=== PATIENT | male | born 1955 | race Caucasian/White ===

== ENCOUNTER → 2019-04-03 16:23 | Outpatient (CLI) | payer OTHER, SELFPAY ==
--- NOTE | 2019-04-03 16:27 | DI.US.S_ITS ---
PROCEDURE: US PERIPH VENOUS LOW EXTREM LT INDICATIONS: LE SWELLING, PAIN R/O DVT TECHNIQUE: Real-time imaging, as well as color and pulse Doppler interrogation, were performed of the lower extremity deep veins from the inguinal ligament to the popliteal fossa. COMPARISON: None. FINDINGS: The common femoral, femoral and popliteal veins are normally compressible, and free of intraluminal thrombus. Color and pulse Doppler demonstrate normal phasic intraluminal flow. There is normal augmentation response to distal compression maneuver. Borderline, bilateral enlarged groin lymph nodes are noted the largest is present on the left measuring 12 mm. IMPRESSION: 1. No deep venous thrombosis. 2. Borderline enlarged groin lymph nodes as above. While these could be reactive in nature, clinical correlation is recommended. Dictated by: Nanette Toscano M.D. on 04/03/2019 at 17:06 Approved by: Nanette Toscano M.D. on 04/03/2019 at 17:07
== END ==
PROVIDERS: Visit Provider Physician Assistant
DX: M79.89 Other specified soft tissue disorders (principal)
CPT/HCPCS: 93971

== ENCOUNTER → 2020-04-04 09:25 | Outpatient (CLI) | payer OTHER, SELFPAY ==
[2020-04-04 10:26] LABS: Add Manual Diff / Slide Review NO; Basophils Absolute Auto 0 /uL (0-100); Basophils Percent Auto 0.4 % (0-2); Eosinophils Absolute Auto 100 /uL (0-450); Eosinophils Percent Auto 2.6 % (2-4); Hematocrit 41.9 % (41-53); Hemoglobin 14.4 g/dL (13.5-17.5); Lymphocytes Absolute Auto 1700 /uL (1100-4500); Lymphocytes Percent Auto 31.8 % (25-40); Mean Corpuscular HGB Conc 34.4 % (30-36); Mean Corpuscular Hemoglobin 32.5 PG (26-34); Mean Corpuscular Volume 94.3 fL (80-100); Monocytes Absolute Auto 500 /uL (0-900); Monocytes Percent Auto 9.5 % (3-14); Neutrophils Absolute Auto 3000 /uL (1500-7000); Neutrophils Percent Auto 55.7 % (50-75); Platelet Count 232 X10^3/uL (150-400); Red Blood Cell Count 4.44 X10^6/uL (4.5-5.9); Red Cell Distribution Width 12.9 % (11.6-14.8); White Blood Cell Count 5.4 X10^3/uL (4.5-11.0)
[2020-04-04 10:43] LABS: Creatinine Urine Random 116.4 mg/dL
[2020-04-04 10:45] LABS: Microalbumin Urine Random 0.7 mg/dL (0-1.6)
[2020-04-04 10:47] LABS: Alanine Aminotransferase 34 IU/L (<50); Albumin 4.6 g/dL (3.5-5.0); Albumin Globulin Ratio 1.4 (1.0-2.8); Alkaline Phosphatase 67 U/L (38-126); Aspartate Aminotransferase 40 IU/L (17-59); BUN Creatinine Ratio 22.8 (6-22); Blood Urea Nitrogen 18 mg/dL (9-20); Calcium 9.8 mg/dL (8.4-10.2); Carbon Dioxide 27 mmol/L (22-32); Chloride 101 mmol/L (98-107); Cholesterol 157 mg/dL (140-199); Estimated Glomerular Filt Rate > 60.0 mL/min (>60); Globulin 3.4 g/dL (1.7-4.1); Glucose 97 mg/dL (80-110); HDL Cholesterol 40 mg/dL (40-60); HEMOLYSIS < 15 (0-50); LDL Cholesterol Calculated 80 mg/dL (<100); Sodium 136 mmol/L (137-145); Triglycerides 185 mg/dL (35-150)
[2020-04-04 11:07] LABS: Free T3, Triiodothyronine Free 4.06 pg/mL (2.77-5.27); Free T4, Direct Thyroxine 1.14 ng/dL (0.78-2.19)
[2020-04-04 11:10] LABS: Prostate Specific Antigen Scrn 0.629 ng/mL (0.1-4.0)
[2020-04-04 11:20] LABS: Thyroid Stimulating Hormone 3.44 uIU/mL (0.47-4.68)
== END ==
PROVIDERS: PCP Nurse Practitioner; Referring Provider Nurse Practitioner; Visit Provider Nurse Practitioner
DX: Z00.00 Encounter for general adult medical examination without abnormal findings (principal); E78.00 Pure hypercholesterolemia, unspecified; I10 Essential (primary) hypertension; M10.9 Gout, unspecified; Z12.11 Encounter for screening for malignant neoplasm of colon; Z12.5 Encounter for screening for malignant neoplasm of prostate; Z13.29 Encounter for screening for other suspected endocrine disorder
CPT/HCPCS: 36415; 80053; 80061; 82043; 82570; 84439; 84443; 84481; 85025; G0103

== ENCOUNTER → 2021-06-17 09:17 | Outpatient (CLI) | payer BC, SELFPAY ==
[2021-06-17 10:16] LABS: Alanine Aminotransferase 30 IU/L (<50); Albumin 4.4 g/dL (3.5-5.0); Albumin Globulin Ratio 1.6 (1.0-2.8); Alkaline Phosphatase 54 U/L (38-126); Aspartate Aminotransferase 38 IU/L (17-59); BUN Creatinine Ratio 29.3 (6-22); Bilirubin Total 0.6 mg/dL (0.2-1.3); Blood Urea Nitrogen 22 mg/dL (9-20); Calcium 9.9 mg/dL (8.4-10.2); Carbon Dioxide 32 mmol/L (22-32); Chloride 100 mmol/L (98-107); Cholesterol 158 mg/dL (140-199); Estimated Glomerular Filt Rate > 60.0 mL/min (>60); Globulin 2.8 g/dL (1.7-4.1); Glucose 98 mg/dL (80-110); HDL Cholesterol 55 mg/dL (40-60); HEMOLYSIS < 15 (0-50); LDL Cholesterol Calculated 83 mg/dL (<100); Potassium 4.5 mmol/L (3.4-5.1); Sodium 138 mmol/L (137-145); Total Protein 7.2 g/dL (6.3-8.2); Triglycerides 98 mg/dL (35-150)
[2021-06-17 10:26] LABS: Free T3, Triiodothyronine Free 3.96 pg/mL (2.77-5.27); Free T4, Direct Thyroxine 1.04 ng/dL (0.78-2.19)
[2021-06-17 10:39] LABS: Thyroid Stimulating Hormone 2.72 uIU/mL (0.47-4.68)
[2021-06-17 17:57] LABS: Creatinine Urine Random 97.6 mg/dL
[2021-06-17 18:02] LABS: Microalbumi Creatinin Ratio Ur 6.1 ug/mg CR (<30); Microalbumin Urine Random 0.6 mg/dL (0-1.6)
== END ==
PROVIDERS: PCP Nurse Practitioner; Referring Provider Nurse Practitioner; Visit Provider Nurse Practitioner
DX: E78.00 Pure hypercholesterolemia, unspecified (principal); I10 Essential (primary) hypertension; Z79.899 Other long term (current) drug therapy
CPT/HCPCS: 36415; 80053; 80061; 82043; 82570; 84439; 84443; 84481

== ENCOUNTER → 2022-04-08 09:41 | Outpatient (CLI) | payer OTHER, MEDICAID, SELFPAY ==
[2022-04-08 11:04] LABS: Creatinine Urine Random 23.2 mg/dL
[2022-04-08 11:07] LABS: Microalbumin Urine Random < 0.6 mg/dL (0-1.6)
[2022-04-08 11:07] LABS: Alanine Aminotransferase 30 IU/L (<50); Albumin 4.9 g/dL (3.5-5.0); Albumin Globulin Ratio 1.4 (1.0-2.8); Alkaline Phosphatase 63 U/L (38-126); Aspartate Aminotransferase 42 IU/L (17-59); BUN Creatinine Ratio 19.2 (6-22); Bilirubin Total 1.1 mg/dL (0.2-1.3); Blood Urea Nitrogen 14 mg/dL (9-20); Calcium 9.6 mg/dL (8.4-10.2); Carbon Dioxide 28 mmol/L (22-32); Chloride 102 mmol/L (98-107); Cholesterol 164 mg/dL (140-199); Estimated Glomerular Filt Rate > 60 mL/min (>60); Globulin 3.5 g/dL (1.7-4.1); Glucose 106 mg/dL (80-110); HDL Cholesterol 58 mg/dL (40-60); HEMOLYSIS < 15 (0-50); LDL Cholesterol Calculated 82 mg/dL (<100); Sodium 139 mmol/L (137-145); Total Protein 8.4 g/dL (6.3-8.2); Triglycerides 122 mg/dL (35-150)
[2022-04-08 11:19] LABS: Free T3, Triiodothyronine Free 3.48 pg/mL (2.77-5.27)
[2022-04-08 11:33] LABS: Thyroid Stimulating Hormone 2.62 uIU/mL (0.47-4.68)
== END ==
PROVIDERS: PCP Nurse Practitioner; Referring Provider Nurse Practitioner; Visit Provider Nurse Practitioner
DX: E78.00 Pure hypercholesterolemia, unspecified (principal); I10 Essential (primary) hypertension; K21.9 Gastro-esophageal reflux disease without esophagitis; M10.9 Gout, unspecified; Z79.899 Other long term (current) drug therapy
CPT/HCPCS: 36415; 80053; 80061; 82043; 82570; 84439; 84443; 84481

== ENCOUNTER → 2022-04-22 12:39 | Outpatient (CLI) | payer OTHER, MEDICAID, SELFPAY ==
[2022-04-24 12:36] LABS: Alpha-1-Globulin 0.2 g/dL (0.0-0.4); Alpha-2-Globulin 0.7 g/dL (0.4-1.0); Gamma Globulin 1.2 g/dL (0.4-1.8); Globulin Total 3.3 g/dL (2.2-3.9); Protein, Total 7.3 g/dL (6.0-8.5)
== END ==
PROVIDERS: PCP Nurse Practitioner; Referring Provider Nurse Practitioner; Visit Provider Nurse Practitioner
DX: R77.8 Other specified abnormalities of plasma proteins (principal); R77.9 Abnormality of plasma protein, unspecified
CPT/HCPCS: 36415; 84155; 84165

== ENCOUNTER → 2022-07-17 08:38 | Outpatient (CLI) | payer OTHER, MEDICAID, SELFPAY ==
--- NOTE | 2022-07-17 08:39 | DI.MRI.S_ITS ---
PROCEDURE: MR ANKLE RT WO/W CON INDICATIONS: Other specified soft tissue disorders TECHNIQUE: Noncontrast sagittal T1 spin echo and T2 fast spin echo with fat saturation, axial proton density fast spin echo and T2 fast spin echo with fat saturation, axial T1 spin echo with fat saturation, coronal T1 spin echo and T2 fast spin echo with fat saturation through the ankle/hindfoot. Post-contrast axial, coronal, and sagittal T1 spin echo with fat saturation through the ankle/hindfoot. COMPARISON: None. FINDINGS: Image quality: Excellent. Bones and joints: No bone marrow contusions or fractures. No hindfoot coalitions. No osteochondral injuries of the talar dome. There is degenerative spurring of the dorsal aspect of talonavicular joint. No enhancing soft tissue mass. No abnormal intraosseous enhancement. Medial structures: The deep and superficial layers of the deltoid ligament appear intact. The spring ligament components are intact. Mild tenosynovitis of the distal posterior tibialis tendon. The flexor digitorum longus and flexor hallucis longus tendons are intact. The posterior tibial neurovascular bundle appears normal within the tarsal tunnel, without extrinsic mass effect. Lateral structures: The anterior talofibular, calcaneofibular, and posterior talofibular ligaments appear intact. The anterior and posterior tibiofibular ligaments appear intact. There is tendinosis and suspected longitudinal split tearing of the peroneus brevis tendon the level of the distal fibula with tendon reconstitution proximal to the calcaneocuboid joint. Peroneus longus tendon is intact. The sinus tarsi demonstrates normal fatty signal. Anterior structures: The tibialis anterior, extensor hallucis longus, and extensor digitorum longus tendons appear intact. The dorsal talonavicular ligament appears mildly thickened. Posterior and plantar structures: There is mild Achilles tendinosis. Cystic changes are seen in the posterior medial calcaneus adjacent to the Achilles tendon insertion. There is trace fluid along the Achilles tendon and the retrocalcaneal and retro Achilles bursa. The proximal plantar fascia is thickened, consistent with chronic tendinosis. No surrounding edema is seen. No abductor digiti quinti muscle atrophy to suggest Byers neuropathy. IMPRESSION: 1. Mild Achilles tendinosis. Trace fluid surrounding the Achilles tendon may be related to peritenonitis versus mild retrocalcaneal and retro-Achilles bursitis. 2. Mild to moderate chronic proximal plantar fasciitis. 3. 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 4. Mild distal posterior tibialis tenosynovitis. 5. Mild degenerative changes at the dorsal talonavicular joint. Chronic low-grade sprain of the dorsal talonavicular ligament. Approved by: Alberto Urias M.D. on 07/17/2022 at 11:19
== END ==
PROVIDERS: PCP Nurse Practitioner; Referring Provider Podiatrist Foot & Ankle Surgery; Visit Provider Podiatrist Foot & Ankle Surgery
DX: M65.861 Other synovitis and tenosynovitis, right lower leg (principal); M72.2 Plantar fascial fibromatosis; S93.491A Sprain of other ligament of right ankle, initial encounter; M79.89 Other specified soft tissue disorders
CPT/HCPCS: 73723

== ENCOUNTER → 2022-09-28 12:23 | Outpatient (CLI) | payer OTHER, MEDICAID, SELFPAY ==
[2022-09-28 13:04] LABS: Add Manual Diff / Slide Review NO; Basophils Absolute Auto 0 /uL (0-100); Basophils Percent Auto 0.5 % (0-2); Eosinophils Absolute Auto 100 /uL (0-450); Eosinophils Percent Auto 1.5 % (2-4); Hemoglobin 13.8 g/dL (13.5-17.5); Lymphocytes Absolute Auto 1700 /uL (1100-4500); Lymphocytes Percent Auto 34.8 % (25-40); Mean Corpuscular HGB Conc 34.6 % (30-36); Mean Corpuscular Hemoglobin 31.7 PG (26-34); Mean Corpuscular Volume 91.7 fL (80-100); Monocytes Absolute Auto 500 /uL (0-900); Monocytes Percent Auto 9.9 % (3-14); Neutrophils Absolute Auto 2600 /uL (1500-7000); Neutrophils Percent Auto 53.3 % (50-75); Platelet Count 231 X10^3/uL (150-400); Red Blood Cell Count 4.36 X10^6/uL (4.5-5.9); Red Cell Distribution Width 13.1 % (11.6-14.8); White Blood Cell Count 4.9 X10^3/uL (4.5-11.0)
[2022-09-28 13:12] LABS: Appearance Urine UA CLEAR; Bilirubin Urine UA NEGATIVE (NEGATIVE); Color Urine UA YELLOW; Glucose Urine UA NEGATIVE (Negative); Ketones Urine UA NEGATIVE (NEGATIVE); Leukocyte Esterase Urine UA NEGATIVE (NEGATIVE); Nitrite Urine UA NEGATIVE (Negative); Occult Blood Urine UA NEGATIVE (Negative); Protein Urine UA NEGATIVE (Negative); Urobilinogen Urine UA 0.2 E.U./dL (0.2)
[2022-09-28 13:20] LABS: Alanine Aminotransferase 29 IU/L (<50); Albumin 4.5 g/dL (3.5-5.0); Albumin Globulin Ratio 1.4 (1.0-2.8); Alkaline Phosphatase 64 U/L (38-126); Aspartate Aminotransferase 34 IU/L (17-59); BUN Creatinine Ratio 24.3 (6-22); Bilirubin Total 0.8 mg/dL (0.2-1.3); Blood Urea Nitrogen 17 mg/dL (9-20); Calcium 9.8 mg/dL (8.4-10.2); Carbon Dioxide 30 mmol/L (22-32); Chloride 98 mmol/L (98-107); Estimated Glomerular Filt Rate > 60 mL/min (>60); Globulin 3.3 g/dL (1.7-4.1); Glucose 94 mg/dL (80-110); HEMOLYSIS < 15 (0-50); Potassium 4.3 mmol/L (3.4-5.1); Sodium 140 mmol/L (137-145); Total Protein 7.8 g/dL (6.3-8.2)
[2022-09-28 13:33] LABS: Bacteria Urine None Seen; Culture Indicated Urine Cult Not Indicated; RBC Urine None Seen (0-5/HPF); Squamous Epithelial Cell Urine None Seen (0-5/HPF); WBC Urine None Seen (0-5/HPF)
== END ==
LOC: LAB 12:24 → RESP 12:37
PROVIDERS: PCP Nurse Practitioner; Referring Provider Nurse Practitioner; Visit Provider Nurse Practitioner
DX: Z01.818 Encounter for other preprocedural examination (principal)
CPT/HCPCS: 36415; 80053; 81001; 85025; 93005; 93010

== ENCOUNTER → 2023-04-12 10:07 | Outpatient (CLI) | payer MEDICARE, OTHER, SELFPAY ==
[2023-04-12 11:25] LABS: Alanine Aminotransferase 30 IU/L (<50); Albumin 4.3 g/dL (3.5-5.0); Albumin Globulin Ratio 1.3 (1.0-2.8); Alkaline Phosphatase 58 U/L (38-126); Aspartate Aminotransferase 40 IU/L (17-59); BUN Creatinine Ratio 19.2 (6-22); Bilirubin Total 0.6 mg/dL (0.2-1.3); Blood Urea Nitrogen 15 mg/dL (9-20); Calcium 9.4 mg/dL (8.4-10.2); Carbon Dioxide 31 mmol/L (22-32); Chloride 99 mmol/L (98-107); Cholesterol 135 mg/dL (140-199); Creatinine Urine Random 50.2 mg/dL; Estimated Glomerular Filt Rate > 60 mL/min (>60); Globulin 3.3 g/dL (1.7-4.1); Glucose 99 mg/dL (80-110); HDL Cholesterol 42 mg/dL (40-60); HEMOLYSIS < 15 (0-50); LDL Cholesterol Calculated 63 mg/dL (<100); Potassium 4.1 mmol/L (3.4-5.1); Sodium 136 mmol/L (137-145); Total Protein 7.6 g/dL (6.3-8.2); Triglycerides 148 mg/dL (35-150)
[2023-04-12 11:37] LABS: Microalbumin Urine Random < 0.6 mg/dL (0-1.6)
[2023-04-12 11:39] LABS: Free T3, Triiodothyronine Free 3.78 pg/mL (2.77-5.27); Free T4, Direct Thyroxine 1.19 ng/dL (0.78-2.19)
[2023-04-12 11:52] LABS: Prostate Specific Antigen Scrn 0.531 ng/mL (0.1-4.0)
[2023-04-12 12:11] LABS: HIV 1 & 2 Ab/Ag 4th Gen Combo NEGATIVE (NEGATIVE); Hep C Virus Ab w/Reflex Quant NEGATIVE s/c (NEGATIVE)
== END ==
PROVIDERS: PCP Nurse Practitioner; Referring Provider Nurse Practitioner; Visit Provider Nurse Practitioner
DX: E78.00 Pure hypercholesterolemia, unspecified (principal); Z12.5 Encounter for screening for malignant neoplasm of prostate; I10 Essential (primary) hypertension; M1A.9XX0 Chronic gout, unspecified, without tophus (tophi); Z79.899 Other long term (current) drug therapy; Z11.4 Encounter for screening for human immunodeficiency virus [HIV]; Z11.59 Encounter for screening for other viral diseases
CPT/HCPCS: 36415; 80053; 80061; 82043; 82570; 84439; 84443; 84481; 86803; 87389; G0103

== ENCOUNTER → 2024-02-29 10:17 | Outpatient (CLI) | payer MEDICARE, OTHER, SELFPAY ==
--- NOTE | 2024-02-29 10:18 | DI.US.S_ITS ---
PROCEDURE: US EXTREMELY NONVASC UPPER RT INDICATIONS: Lump posterior right hand TECHNIQUE: Real-time scanning was performed of the right hand, with image documentation. COMPARISON: None. FINDINGS: In the region of the palpable abnormality at the posterior 1st-2nd thenar space, there is a cystic structure measuring 3.4 x 1.7 x 1.2 cm. There is posterior through transmission. There is internal debris and a thin septation. No internal vascularity. Abnormality is located just deep to the skin. IMPRESSION: Right thenar eminence palpable abnormality corresponds to a cystic structure measuring 3.4 cm. Mild complexity. No internal vascularity. This most likely represents a ganglion cyst. X-rays and/or MRI could be considered for further evaluation. Dictated by: Heriberto Hamilton M.D. on 02/29/2024 at 11:33 Approved by: Heriberto Hamilton M.D. on 02/29/2024 at 11:40
--- NOTE | 2024-02-29 10:18 | DI.RAD.S_ITS ---
PROCEDURE: XR ANKLE LT MIN 3V INDICATIONS: Swelling left ankle w/pronation TECHNIQUE: 3 views of the ankle were acquired. COMPARISON: None. FINDINGS: Bones: No fracture or subluxation identified. Ankle mortise appears intact. Small plantar calcaneal spur present. Os trigonum noted. Soft tissues: Soft tissues appear unremarkable radiographically IMPRESSION: No acute osseous abnormality seen Os trigonum noted Dictated by: Jose Barriga M.D. on 03/01/2024 at 7:33 Approved by: Jose Barriga M.D. on 03/01/2024 at 7:36
== END ==
PROVIDERS: PCP Nurse Practitioner; Referring Provider Physician Assistant; Visit Provider Physician Assistant
DX: M25.472 Effusion, left ankle (principal); R22.31 Localized swelling, mass and lump, right upper limb; M77.32 Calcaneal spur, left foot; Q68.8 Other specified congenital musculoskeletal deformities
CPT/HCPCS: 73610; 76882

== ENCOUNTER → 2024-03-24 10:12 | Outpatient (CLI) | payer MEDICARE, OTHER, SELFPAY ==
[2024-03-24 11:00] LABS: Alanine Aminotransferase 23 IU/L (<50); Alkaline Phosphatase 61 U/L (38-126); Aspartate Aminotransferase 34 IU/L (17-59); BUN Creatinine Ratio 30.1 (6-22); Bilirubin Total 0.9 mg/dL (0.2-1.3); Blood Urea Nitrogen 22 mg/dL (9-20); Calcium 9.9 mg/dL (8.4-10.2); Chloride 102 mmol/L (98-107); Cholesterol 161 mg/dL (140-199); Estimated Glomerular Filt Rate > 60 mL/min (>60); Glucose 103 mg/dL (80-110); HDL Cholesterol 54 mg/dL (40-60); HEMOLYSIS < 15 (0-50); LDL Cholesterol Calculated 75 mg/dL (<100); Potassium 4.3 mmol/L (3.4-5.1); Sodium 137 mmol/L (137-145); Total Protein 7.4 g/dL (6.3-8.2); Triglycerides 162 mg/dL (35-150)
[2024-03-24 11:02] LABS: Albumin 4.6 g/dL (3.5-5.0); Albumin Globulin Ratio 1.6 (1.0-2.8); Carbon Dioxide 28 mmol/L (22-32); Globulin 2.8 g/dL (1.7-4.1)
[2024-03-24 11:18] LABS: Free T3, Triiodothyronine Free 3.64 pg/mL (2.77-5.27); Free T4, Direct Thyroxine 1.05 ng/dL (0.78-2.19)
[2024-03-24 11:19] LABS: Creatinine Urine Random 37.27 mg/dL
[2024-03-24 11:28] LABS: Microalbumin Urine Random < 0.6 mg/dL (0-1.6)
[2024-03-24 11:32] LABS: TSH w/ Reflex to FT4 2.46 uIU/mL (0.47-4.68)
== END ==
PROVIDERS: PCP Nurse Practitioner; Referring Provider Nurse Practitioner; Visit Provider Nurse Practitioner
DX: I10 Essential (primary) hypertension (principal); E78.00 Pure hypercholesterolemia, unspecified; Z82.49 Family history of ischemic heart disease and other diseases of the circulatory system
CPT/HCPCS: 36415; 80053; 80061; 82043; 82570; 84439; 84443; 84481

== ENCOUNTER → 2025-03-07 15:08 | Outpatient (CLI) | payer MEDICARE, OTHER, SELFPAY ==
--- NOTE | 2025-03-07 15:10 | DI.MRI.S_ITS ---
PROCEDURE: MR SHOULDER LT WO CON INDICATIONS: PAIN TECHNIQUE: Noncontrast oblique coronal T2 fast spin echo with fat saturation, oblique sagittal T1 spin echo and T2 fast spin echo with fat saturation, axial T1 spin echo and T2 fast spin echo with fat saturation through the shoulder. COMPARISON: None. FINDINGS: Image quality: Excellent. Rotator cuff: Low to moderate grade articular and bursal surface partial thickness tear involving distal supraspinatus at its insertion on the humeral head is seen extending to musculotendinous junction. Distal infraspinatus and subscapularis tendinosis is seen. No full-thickness rotator cuff tendon rupture. Sagittal images demonstrate mild supraspinatus muscle atrophy. Bones and bursae: Marrow edema involving anterior and lateral aspect of humeral head extending to greater tuberosity with subcortical cystic changes. No discrete fracture line. No other area of abnormal marrow signal. Mild to moderate acromioclavicular joint osteoarthritic changes are seen with joint space narrowing and downward osteophyte formation depressing the musculotendinous junction of supraspinatus. Type 1 acromion without an os acromiale. Small to moderate amount of joint effusion and subacromial subdeltoid bursal fluid, no loose bodies. Capsule and soft tissues: Labrum is grossly intact. The long head of the biceps tendon demonstrates normal location and morphology. The rotator interval appears normal, without fibrosis. The coracohumeral ligament is normal in thickness. IMPRESSION: 1. Low to moderate grade articular and bursal surface partial thickness tear involving distal supraspinatus extending to musculotendinous junction. Distal infraspinatus and subscapularis tendinosis. No full-thickness rotator cuff tendon rupture. Mild supraspinatus muscle atrophy. 2. Contusion involving anterior lateral aspect of humeral head extending to greater tuberosity near rotator cuff tendon insertion. No acute fracture or dislocation. [id number] acromioclavicular joint osteoarthritis. Moderate joint effusion and subacromial subdeltoid bursal fluid, no loose bodies. 3. No evidence of focal labral tear. Dictated by: Salazar Wynn M.D. on 03/08/2025 at 11:36 Approved by: Salazar Wynn M.D. on 03/08/2025 at 11:41
== END ==
PROVIDERS: PCP Nurse Practitioner; Referring Provider Orthopaedic Surgery; Visit Provider Orthopaedic Surgery
DX: M75.112 Incomplete rotator cuff tear or rupture of left shoulder, not specified as traumatic (principal); M25.512 Pain in left shoulder; M19.012 Primary osteoarthritis, left shoulder; M25.412 Effusion, left shoulder; S40.012A Contusion of left shoulder, initial encounter
CPT/HCPCS: 73221

== ENCOUNTER → 2025-03-29 09:17 | Outpatient (CLI) | payer MEDICARE, OTHER, SELFPAY ==
[2025-03-29 10:40] LABS: Blood Urea Nitrogen 21 mg/dL (9-20); Calcium 10.1 mg/dL (8.4-10.2); Carbon Dioxide 27 mmol/L (22-32); Chloride 99 mmol/L (98-107); Cholesterol 167 mg/dL (140-199); Estimated Glomerular Filt Rate > 60 mL/min (>60); Glucose 98 mg/dL (70-99); HDL Cholesterol 47 mg/dL (40-60); HEMOLYSIS < 15 (0-50); Potassium 4.4 mmol/L (3.4-5.1); Sodium 138 mmol/L (137-145); Triglycerides 174 mg/dL (35-150)
== END ==
PROVIDERS: PCP Nurse Practitioner Family; Referring Provider Nurse Practitioner Family; Visit Provider Nurse Practitioner Family
DX: I10 Essential (primary) hypertension (principal); E78.00 Pure hypercholesterolemia, unspecified
CPT/HCPCS: 36415; 80048; 80061